=== PATIENT | male | born 1980 | race Caucasian/White ===

== ENCOUNTER → 2017-05-19 | Outpatient (CLI) | payer SELFPAY | END | disposition home or self-care (01) | LOC: OLS 13:33 | DX: Z48.816 Encounter for surgical aftercare following surgery on the genitourinary system (principal); Z98.52 Vasectomy status ==

== ENCOUNTER → 2021-05-03 | Outpatient (CLI) | payer OTHER ==
[2021-05-05 15:35] LABS: CORONAVIRUS (COVID19) CSH-NRL Negative (Negative)
== END | disposition home or self-care (01) ==
LOC: LAB SHORT 11:16
PROVIDERS: Physician Assistant Medical
DX: R43.0 Anosmia (principal); Z20.822 Contact with and (suspected) exposure to COVID-19
CPT/HCPCS: U0003

== ENCOUNTER 2025-04-23 09:50 | Day surgery (SDC) | payer OTHER ==
[~2025-04-23] VITALS: Ht 188 cm; Wt 124.9 kg
[~2025-04-23 09:50] MED LIST: Bupivacaine 0.5% HCl 5 MG/ML 30MLVIAL ONE; Dexamethasone Sod Phos 10 MG/ML 1ML VIAL ONE; FentaNYL Citrate 50 MCG/ML 2 ML Injection ONE; Ketorolac Tromethamine 30mg Vial ONE; Midazolam HCl 1MG / ML 2ML Vial ONE; Ondansetron HCl 2 MG / ML 2ML Vial ONE; Rocuronium Bromide 10 MG/ML 5ML Injection IV ONE; Sugammadex Sodium 200 MG/2ML SDV (100 MG/ML) ONE; Tranexamic Acid 100 ML IV ONE
[2025-04-23] MEDS ORDERED: CeFAZolin Sodium 3,000 MG VIAL ONE (09:59)
[2025-04-23] MEDS ORDERED: NAPR220 PO (10:03)
[2025-04-23] MEDS ORDERED: PROAIR RESPICL90 MCG IH (10:03)
--- NOTE | 2025-04-23 11:54 | NUR ---
04/23/25 1154 Zhane Rogers PT HAD BLOCK ON RIGHT SHOULDER IN PREOP. T/O AT 1138 START AT 1141 END 1147
--- NOTE | 2025-04-23 12:48 | NUR ---
04/23/25 1248 Annie Fowler [address] COPPOLA AT 1204.
[2025-04-23 14:54] VITALS: BP 103/61
== END 2025-04-23 14:45 | disposition home or self-care (01) ==
LOC: ORSCSDS 09:50
PROVIDERS: Orthopaedic Surgery Sports Medicine
PROC: 0RQJ4ZZ Repair Right Shoulder Joint, Percutaneous Endoscopic Approach (ICD-10-PCS; principal; 2025-04-23 11:15)
PROC: 0LS30ZZ Reposition Right Upper Arm Tendon, Open Approach (ICD-10-PCS; principal; 2025-04-23 11:15)
PROC: 0RNJ4ZZ Release Right Shoulder Joint, Percutaneous Endoscopic Approach (ICD-10-PCS; principal; 2025-04-23 11:15)
DX: M75.41 Impingement syndrome of right shoulder (principal); M19.011 Primary osteoarthritis, right shoulder; M25.811 Other specified joint disorders, right shoulder; M25.511 Pain in right shoulder; J45.909 Unspecified asthma, uncomplicated; Z79.899 Other long term (current) drug therapy
CPT/HCPCS: C1713; J0166; J0690; J1100; J1885; J2250; J2405; J2704; J3010; J7120